=== PATIENT | female | born 1975 | race Caucasian/White ===

== ENCOUNTER 2017-09-22 00:53 | Emergency (ER) | payer OTHER ==
[2017-09-22] MEDS ORDERED: Iohexol 240 (50 ml) PO ONE (03:15)
--- NOTE | 2017-09-22 03:27 | ED PDOC ---
HPI: Abdomen Time Seen by Provider: 09/22/17 02:35 Chief Complaint (Nursing): Female Genitourinary Chief Complaint (Provider): Abdominal Pain History Per: Patient History/Exam Limitations: no limitations Onset/Duration Of Symptoms: Days (x6) Current Symptoms Are (Timing): Still Present Location Of Pain/Discomfort: LUQ, LLQ Quality Of Discomfort: Other (Discomfort) Associated Symptoms: Other ((+) vaginal spotting, diffuse breast tenderness) Additional Complaint(s): 42 year old female presents to ED with complaints of diffuse lower abdominal discomfort x6 days and has no past medical history. (+) vaginal spotting and diffuse breast tenderness. Notes that her LMP was in July 2017. PCP: Evy De Past Medical History Reviewed: Historical Data, Nursing Documentation, Vital Signs Vital Signs: Last Vital Signs Temp 98.1 F 09/22/17 07:35 Pulse 61 09/22/17 07:35 Resp 18 09/22/17 07:35 BP 131/69 09/22/17 07:35 Pulse Ox 100 09/22/17 08:24 - Medical History PMH: No Chronic Diseases - Surgical History Surgical History: No Surg Hx - Family History Family History: States: No Known Family Hx - Social History Current smoker - smoking cessation education provided: No Ex-Smoker (has not smoked in the last 12 months): No Alcohol: None Drugs: Denies - Allergies Allergies/Adverse Reactions: Allergies Allergy/AdvReac Type Severity Reaction Status Date / Time No Known Allergies Allergy Verified 09/22/17 01:17 Review of Systems ROS Statement: Except As Marked, All Systems Reviewed And Found Negative Gastrointestinal: Positive for: Abdominal Pain Genitourinary Female: Positive for: Vaginal Bleeding (vaginal spotting) Musculoskeletal: Positive for: Other ((+) diffuse breast tenderness) Physical Exam - Reviewed Nursing Documentation Reviewed: Yes Vital Signs Reviewed: Yes - Physical Exam Appears: Positive for: Non-toxic, No Acute Distress Head Exam: Positive for: ATRAUMATIC, NORMOCEPHALIC Skin: Positive for: Normal Color, Warm, Dry Eye Exam: Positive for: Normal appearance, EOMI, PERRL ENT: Positive for: Normal ENT Inspection Neck: Positive for: Normal, Painless ROM, Supple Cardiovascular/Chest: Positive for: Regular Rate, Rhythm. Negative for: Bradycardia Respiratory: Positive for: Normal Breath Sounds. Negative for: Respiratory Distress Gastrointestinal/Abdominal: Positive for: Soft, Tenderness (suprapubic tenderness) Extremity: Positive for: Normal ROM. Negative for: Deformity Neurologic/Psych: Positive for: Alert, Oriented. Negative for: Motor/Sensory Deficits - Laboratory Results Result Diagrams: 09/22/17 03:20 09/22/17 03:20 - ECG O2 Sat by Pulse Oximetry: 100 (RA) Pulse Ox Interpretation: Normal Medical Decision Making Medical Decision Makin Initial impression: r/o threatened AB r/o UTI Initial plan: * CTA A/P * BETA-HCG, QUANT * Labs * Iohexol 50mL PO * T&S * Urine C&S * UA * US OB PREG, LIMITED 0634 RH: positive 0725 FINDINGS: US Abdomen/Pelvis/Transvag: No pole identified. Gestational age based on gestational sac measurement 5 weeks 6 days Gestational age derived from LMP: 5 weeks 4 days JAZMIN based on LMP: 05/21/2018 JAZMIN based on biometry: 05/19/2019 Gestational concordance documented Yolk sac not identified Uterus: Unremarkable. No Cervical abnormalities: Negative examination for cervical dilatation or effacement. Closed cervix measuring 5.04 cm Incidental finding: Nabothian cysts Subchorionic hemorrhage: None UTERUS: 5.6 x 8.7 x 14.5 cm. Location of fibroid and size: Posterior to the left of the midline 2.7 x 3.8 x 4.1 cm ADNEXA: Right: 1.6 x 2.3 x 3.2 cm. Normal Doppler arterial waveform documented. Left: 1.8 x 2.7 x 3.2 cm. Normal Doppler arterial waveform documented Fluid in the cul-de-sac: None Subchorionic hemorrhage noted 1 x 2.3 x 2.2 cm IMPRESSION: Irregular gestational sac without demonstrable pole or yolk sac. Subchorionic hemorrhage identified. Follow-up recommended. 0750 Patient US shows possible threatened . Counseled patient on findings and the importance of pelvic rest adn followup in two days with Risk Officer or return to ED. Patient reevaluated, reports cessation of bleeding and increased comfort. RH is positive. Recommended pelvic rest until follow up. Stable for discharge home. follow up in 2 days. pt made aware and agrees Scribe Attestation: Documented by Mercedez Bello and Cam Friedman acting as a scribe for Micheal Means MD. MD Gaona Attestation: All medical record entries made by the Jimenez were at my direction and personally dictated by me. I have reviewed the chart and agree that the record accurately reflects my personal performance of the history, physical exam, medical decision making, and the department course for this patient. I have also personally directed, reviewed, and agree with the discharge instructions and disposition. Disposition - Clinical Impression Clinical Impression: Female genitourinary symptoms - Patient ED Disposition Is Patient to be Admitted: No Counseled Patient/Family Regarding: Studies Performed, Diagnosis, Need For Followup - Disposition Referrals: [facility] [Outside] [facility] [Outside] Disposition: Routine/Home Disposition Time: 07:30 Condition: IMPROVED Additional Instructions: follow up in 2 days with your own state federal relations deputy director or in the ER pelvic rest recommended return to the ED with any worsening or concerning symptoms Instructions: Threatened Miscarriage (ED) Forms: [facility] (N[place]ian) Print Language: [place]
[2017-09-22 03:42] LABS: BASO % 0.4 % (0.0-2.0); EOS # 0.1 K/uL (0.0-0.7); EOS % 1.1 % (0.0-4.0); HEMATOCRIT 30.4 % (34.0-47.0); LYMPH # 1.8 K/uL (1.0-4.3); LYMPH % 24.4 % (20.0-40.0); MEAN CELL VOLUME 75.2 fl (81.0-99.0); MEAN CORPUSCULAR HEMOGLOBIN 24.9 pg (27.0-31.0); MEAN PLATELET VOLUME 8.5 fl (7.2-11.7); MONO # 0.6 K/uL (0.0-0.8); MONO % 7.8 % (0.0-10.0); NEUT % 66.3 % (50.0-75.0); RED CELL DISTRIBUTION WIDTH 15.9 % (11.5-14.5); WHITE BLOOD COUNT 7.6 K/uL (4.8-10.8)
[2017-09-22 03:48] LABS: ALB/GLOB RATIO 1.1 (1.0-2.1); ALKALINE PHOSPHATASE 71 U/L (38-126); ALT/SGPT 34 U/L (9-52); AST/SGOT 21 U/L (14-36); BILIRUBIN,TOTAL 0.1 mg/dl (0.2-1.3); BLOOD UREA NITROGEN 13 mg/dl (7-17); CALCIUM 8.8 mg/dL (8.4-10.2); CARBON DIOXIDE 23 mmol/L (22-30); CHLORIDE 105 mmol/L (98-107); GFR AFRICAN-AMERICAN > 60; GLUCOSE,RANDOM 89 mg/dL (65-105); POTASSIUM 3.6 MMOL/L (3.6-5.0); SODIUM 137 mmol/l (132-148); TOTAL PROTEIN 6.6 G/DL (6.3-8.2)
[2017-09-22 04:41] LABS: RBC URINE 2 /hpf (0-3); URINE BACTERIA RARE (<OCC); URINE BILIRUBIN NEGATIVE (NEGATIVE); URINE BLOOD MODERATE (NEGATIVE); URINE COLOR YELLOW (YELLOW); URINE GLUCOSE (UA) NEG (Normal); URINE KETONE NEGATIVE (NEGATIVE); URINE LEUKOCYTE ESTERASE NEG Leu/uL (Negative); URINE PROTEIN 30 mg/dL (NEGATIVE); URINE UROBILINOGEN 0.2-1.0 mg/dL (0.2-1.0); WBC URINE 7 /hpf (0-5)
--- NOTE | 2017-09-22 07:26 | US ---
PROCEDURE: First trimester ultrasound HISTORY: Pain, vaginal bleeding. Beta HCG results: 46991.0 units COMPARISON: None TECHNIQUE: Standard protocol for this study/examination. FINDINGS: LMP: 08/14/2017 Prior examinations from the current : TECHNIQUE: Real-time 2D imaging, duplex and color Doppler. FINDINGS: No pole identified. Gestational age based on gestational sac measurement 5 weeks 6 days Gestational age derived from LMP: 5 weeks 4 days JAZMIN based on LMP: 05/21/2018 JAZMIN based on biometry: 05/19/2019 Gestational concordance documented Yolk sac not identified Uterus: Unremarkable. No Cervical abnormalities: Negative examination for cervical dilatation or effacement. Closed cervix measuring 5.04 cm Incidental finding: Nabothian cysts Subchorionic hemorrhage: None UTERUS: 5.6 x 8.7 x 14.5 cm. Location of fibroid and size: Posterior to the left of the midline 2.7 x 3.8 x 4.1 cm ADNEXA: Right: 1.6 x 2.3 x 3.2 cm. Normal Doppler arterial waveform documented. Left: 1.8 x 2.7 x 3.2 cm. Normal Doppler arterial waveform documented Fluid in the cul-de-sac: None Subchorionic hemorrhage noted 1 x 2.3 x 2.2 cm IMPRESSION: Irregular gestational sac without demonstrable pole or yolk sac. Subchorionic hemorrhage identified. Follow-up recommended.
[2017-09-22 07:36] VITALS: BP 131/69; PULSE 61; RESP 18; TEMP 98.1
[2017-09-22 08:23] VITALS: O2SAT 100
== END 2017-09-22 08:20 | disposition home or self-care (01) ==
LOC: H.ER 00:53
DX: O20.0 Threatened abortion (principal)

== ENCOUNTER 2018-03-30 12:55 | Emergency (ER) | payer SELFPAY ==
[2018-03-30 12:59] VITALS: BMI 38.9
[2018-03-30 13:05] VITALS: BP 139/76; PULSE 78; RESP 18; TEMP 97.9; O2SAT 97
--- NOTE | 2018-03-30 13:22 | ED PDOC ---
Lower Extremity Pain/Injury Time Seen by Provider: 03/30/18 13:06 Chief Complaint (Nursing): Lower Extremity Problem/Injury Chief Complaint (Provider): Right foot pain History Per: Patient History/Exam Limitations: no limitations Onset/Duration Of Symptoms: Days (1 month) Current Symptoms Are (Timing): Still Present Additional Complaint(s): 43 year old female presents to the emergency department with a complaint of an atramatic right heel pain x1 month. Reports pain is worse with walking. Denies numbness, tingling, trauma or rash. Past Medical History Reviewed: Historical Data, Nursing Documentation, Vital Signs Vital Signs: Last Vital Signs Temp 97.9 F 03/30/18 13:02 Pulse 78 03/30/18 13:02 Resp 18 03/30/18 13:02 BP 139/76 03/30/18 13:02 Pulse Ox 97 03/30/18 13:02 - Medical History PMH: No Chronic Diseases - Surgical History Surgical History: No Surg Hx - Family History Family History: States: Unknown Family Hx - Social History Current smoker - smoking cessation education provided: No Alcohol: None Drugs: Denies - Home Medications Home Medications: Ambulatory Orders Medication Instructions Recorded Naproxen [Naprosyn] 500 mg PO BID PRN #14 tab 03/30/18 - Allergies Allergies/Adverse Reactions: Allergies Allergy/AdvReac Type Severity Reaction Status Date / Time No Known Allergies Allergy Verified 03/30/18 13:01 Review of Systems ROS Statement: Except As Marked, All Systems Reviewed And Found Negative (As per HPI, otherwise negative) Constitutional: Negative for: Other (trauma) Musculoskeletal: Positive for: Foot Pain (atraumatic right heel pain) Skin: Negative for: Rash Neurological: Negative for: Numbness (or tingling) Physical Exam - Reviewed Nursing Documentation Reviewed: Yes Vital Signs Reviewed: Yes - Physical Exam Appears: Positive for: No Acute Distress Head Exam: Positive for: NORMAL INSPECTION Skin: Positive for: Normal Color, Warm, Dry Extremity: Positive for: Normal ROM (DP pulses 2+). Negative for: Tenderness ( of the right foot), Deformity, Swelling (of the right foot), Other (breaking skin integrity, warm, or erythema) Neurologic/Psych: Positive for: Alert, Oriented (x3) - ECG O2 Sat by Pulse Oximetry: 97 (RA) Pulse Ox Interpretation: Normal Medical Decision Making Medical Decision Making: Time: 1314 Initial Impression: Right foot pain Initial Plan: --Right foot x-ray --Reevaluation Time: 1403 --Patient is medically clear for discharge and advised to follow up with podiatry clinic referred for further evaluation. Clinical Impression: Heel Spur Scribe Attestation: Documented by Paty Elizabeth, acting as a scribe for Osvaldo Araya PA-C. Provider Scribe Attestation: All medical record entries made by the Scribe were at my direction and personally dictated by me. I have reviewed the chart and agree that the record accurately reflects my personal performance of the history, physical exam, medical decision making, and the department course for this patient. I have also personally directed, reviewed, and agree with the discharge instructions and disposition. Disposition - Clinical Impression Clinical Impression: Heel spur - Patient ED Disposition Is Patient to be Admitted: No - Disposition Referrals: Podiatry Clinic [Outside] [facility] [Outside] Disposition: Routine/Home Disposition Time: 14:03 Condition: STABLE Additional Instructions: Follow up with PMD for further evaluation. Return to ED immediately if symptoms worsen. Prescriptions: Naproxen [Naprosyn] 500 mg PO BID PRN #14 tab PRN Reason: Pain Instructions: Heel Spurs (DC) Forms: [employer] (Citizen Of [place]) Print Language: UKRAINIAN
--- NOTE | 2018-03-30 15:14 | RAD ---
PROCEDURE: Right Foot Radiographs. HISTORY: Right foot Pain. No history of recent/ related trauma provided COMPARISON: None. FINDINGS: BONES: Large plantar calcaneal spur. No fracture. JOINTS: Normal. SOFT TISSUES: Normal. OTHER FINDINGS: None. IMPRESSION: No acute findings related to/accounting for the clinical presentation.
== END 2018-03-30 16:04 | disposition home or self-care (01) ==
LOC: H.ER 12:55
DX: M77.31 Calcaneal spur, right foot (principal)